=== PATIENT | female | born 1995 | race Caucasian/White ===

== ENCOUNTER 2018-10-31 16:02 | Emergency (ER) | payer MEDICAID ==
[~2018-10-31] VITALS: Ht 167.6 cm; Wt 88.9 kg
[2018-10-31 16:16] VITALS: BP 131/91
== END 2018-10-31 18:12 | disposition home or self-care (01) ==
LOC: ED 16:02
DX: S56.311A Strain of extensor or abductor muscles, fascia and tendons of right thumb at forearm level, initial encounter (principal); W22.8XXA Striking against or struck by other objects, initial encounter; Y93.89 Activity, other specified; Y92.89 Other specified places as the place of occurrence of the external cause; Y99.8 Other external cause status